=== PATIENT | male | born 1990 | race Hispanic/Latino ===

== ENCOUNTER 2021-04-08 22:44 | Emergency (ER) | payer OTHER, SELFPAY ==
--- NOTE | 2021-04-08 22:52 | DI.RAD.S_ITS ---
PROCEDURE: XR LUMBAR SPINE 2-3V INDICATIONS: fall TECHNIQUE: 3 views of the lumbar spine were acquired. COMPARISON: [facility], , SPINE LUMB 2 OR 3VW, 09/25/2014, 7:31. FINDINGS: Bones: 5 [id number] vertebrae are present. There is normal bony alignment. No vertebral body compression fractures. No suspicious bony lesions. Soft tissues: Overlying bowel gas pattern is normal. No suspicious soft tissue calcifications. IMPRESSION: No acute finding. Dictated by: Alvino Romero M.D. on 04/08/2021 at 23:07 Approved by: Alvino Romero M.D. on 04/08/2021 at 23:08
--- NOTE | 2021-04-08 22:52 | DI.RAD.S_ITS ---
PROCEDURE: XR HIP W PEL IF DONE RT 2V INDICATIONS: fall TECHNIQUE: 2 views of the hip were acquired. COMPARISON: None. FINDINGS: Bones: No fractures or dislocations. No suspicious bony lesions. The visualized pelvic ring appears intact. Soft tissues: No suspicious soft tissue calcifications or masses. IMPRESSION: No acute finding. Dictated by: Alvino Romero M.D. on 04/08/2021 at 23:09 Approved by: Alvino Romero M.D. on 04/08/2021 at 23:09
[2021-04-08 22:53] VITALS: BP 118/56; PULSE 78; RESP 16; O2SAT 100
--- NOTE | 2021-04-08 23:57 | ED_ITS ---
HPI - Back Pain/Injury General Chief Complaint: Back Pain/Injury Stated Complaint: HURT BACK Time Seen by Provider: 04/08/21 23:45 Source: patient History of Present Illness HPI Narrative: Patient here with girlfriend. Complains right lower back pain. Was at work. Was lifting heavy buckets of pain in slipped and fell onto his right buttock area. Pain radiates down his leg to the calf. No bowel or bladder incontinence. No saddle paresthesia. No prior history of back injury or pain. Is able stand ambulate but does have pain. Related Data Previous Rx's Medication Instructions Recorded baclofen 20 mg tablet 20 mg PO TID #20 tab 04/08/21 ibuprofen 600 mg tablet 600 mg PO Q6H PRN #24 tab 04/08/21 Allergies Allergy/AdvReac Type Severity Reaction Status Date / Time No Known Drug Allergies Allergy Verified 04/08/21 22:55 Review of Systems Review of Systems Narrative: GENERAL: Denies chills, fatigue, malaise, fever, sweats. HEENT: Denies sinus pain, ear pain, sore throat RESPIRATORY: Denies dyspnea, cough CARDIOVASCULAR: Denies chest pain, palpitations GASTROINTESTINAL: Denies nausea, vomiting, abdominal pain : Denies dysuria, frequency, hematuria MUSCULOSKELETAL: Positive for muscle or bony pain SKIN: Denies rash, skin lesions NEUROLOGIC: Denies weakness, positive numbness, no saddle paresthesia, no incontinence ROS Unobtainable: All systems reviewed & are unremarkable except as noted in HPI and below Exam Narrative Exam Narrative: GENERAL: in no distress, not toxic not dyspneic HEAD: Normocephalic. EYES: Pupils equal round No scleral icterus. ENT: Mucous membranes moist. NECK: Trachea midline. CARDIOVASCULAR: Regular rate and rhythm without murmurs RESPIRATORY: Clear to auscultation. Breath sounds equal bilaterally. No wheezes, rales, or rhonchi. GASTROINTESTINAL: Abdomen soft, non-tender EXTREMITIES: No gross deformities. Nontender hip. Able to flex and extend at the hip but does have pain in the lower back. BACK: No flank tenderness. Reproducible right supragluteal muscle tenderness no bruising skin is intact. No midline tenderness or step-off of the thoracic or lumbar spine. There is limited range of motion at the waist due to pain. There is pain with right straight leg raise at 30?. NEURO: AOx4. Able stand. Has antalgic gait due to right lower back pain. No foot drop. Strong bilateral patellar reflexes and ankle flexion extension. Denies any numbness to the feet. SKIN: Warm and dry PSYCH: Not anxious, is cooperative Initial Vital Signs Initial Vital Signs: Vital Signs Pulse Rate 78 04/08/21 22:53 Respiratory Rate 16 04/08/21 22:53 Blood Pressure 118/56 L 04/08/21 22:53 Pulse Oximetry 100 04/08/21 22:53 Course Course Course Narrative: No new issues during course of stay. Orders Ordered: ED Orders 04/08/21 22:52 XR hip w pel if done RT 2V Stat XR lumbar spine 2-3V Stat Discontinued Medications Hydrocodone Bitart/Acetaminophen (Hydrocodone/Acet 5/325 Tablet) 2 tab PO NOW ONE Stop: 04/08/21 23:57 Last Admin: 04/09/21 00:04 Dose: 2 tab Documented by: EDIS Ketorolac Tromethamine (Ketorolac 30 Mg/Ml Vial) 15 mg IM NOW ONE Stop: 04/08/21 23:57 Last Admin: 04/09/21 00:04 Dose: 15 mg Documented by: EDIS Ondansetron HCl (Ondansetron 4 Mg Odt) 4 mg SL NOW ONE Stop: 04/08/21 23:57 Last Admin: 04/09/21 00:04 Dose: 4 mg Documented by: EDIS Reevaluation(s) Reevaluation #1: Reviewed results of imaging with patient and girlfriend. At this time appropriate for outpatient MRI. No neuro deficits. Girlfriend is driving. Patient has not decided if he is going to complete L and I form. I did start procedure of completing the form. Time: 00:03 Vital Signs Vital signs: Vital Signs - 8 hr 04/08/21 22:53 04/09/21 00:26 Pulse Rate 78 70 Respiratory Rate 16 18 Blood Pressure 118/56 L Pulse Oximetry 100 100 MDM - Back Pain/Injury Imaging Data Extremity x-ray #1: Radiologist's Impression: [address] [address] XRay Report Signed Patient: Addison Hernandez MR#: [id number] : 1990 Acct:[id number] Age/Sex: 30 / M Date of Service: 04/08/21 Loc: ED Accession Number: [id number] ?? Procedure: XR lumbar spine 2-3V Ordering Provider: Jeremy Malloy MD PROCEDURE:? XR LUMBAR SPINE 2-3V ? INDICATIONS:? fall ? TECHNIQUE:? 3 views of the lumbar spine were acquired.? ? COMPARISON:? [facility], , SPINE LUMB 2 OR 3VW, 09/25/2014, 7:31. ? FINDINGS:? ? Bones:? 5 [id number] vertebrae are present.? There is normal bony align ment.? No vertebral body compression fractures.? No suspicious bony lesions.? ? Soft tissues:? Overlying bowel gas pattern is normal.? No suspicious soft tissue calcifications.? ? ? IMPRESSION:? No acute finding. ? ? Dictated by: Alvino Romero M.D. on 04/08/2021 at 23:07 ? ? Approved by: Alvino Romero M.D. on 04/08/2021 at 23:08 ? Extremity x-ray #2: Radiologist's Impression: [place] [address] XRay Report Signed Patient: Addison Hernandez MR#: [id number] : 1990 Acct:[id number] Age/Sex: 30 / M Date of Service: 04/08/21 Loc: ED Accession Number: [id number] ?? Procedure: XR hip w pel if done RT 2V Ordering Provider: Jeremy Malloy MD PROCEDURE:? XR HIP W PEL IF DONE RT 2V ? INDICATIONS:? fall ? TECHNIQUE:? 2 views of the hip were acquired.? ? COMPARISON:? None. ? FINDINGS:? ? Bones:? No fractures or dislocations.? No suspicious bony lesions.? The visualized pelvic ring appears intact.? ? Soft tissues:? No suspicious soft tissue calcifications or masses.? ? IMPRESSION:? No acute finding. ? ? Dictated by: Alvino Romero M.D. on 04/08/2021 at 23:09 ? ? Approved by: Alvino Romero M.D. on 04/08/2021 at 23:09 ? MDM Narrative Medical decision making narrative: Appropriate for discharge home. No neuro deficits. Imaging reassuring. As well as exam. Appropriate for outpatient MRI if not improving in a week. L and I form completed on my behalf however patient has not decided if he wants to submit. Referral for Orthopedics given. Return precautions reviewed with him and girlfriend. She is driving. Not toxic at discharge. Discharge Plan Departure Patient Disposition: Home Clinical Impression: Acute back pain with radiculopathy Activity Restrictions/Additional Instructions: No driving or operating machinery tonight. Inform your employer if you wish to complete L and I forms. Follow-up provider with orthopedics has been given to you. Call the office tomorrow for re-evaluation a week. May use cool or warm packs to the lower back as needed for pain and swelling 20 minutes at a time. Return if worse if any questions or concerns. Prescriptions: New ibuprofen 600 mg tablet 600 mg PO Q6H PRN (Reason: fever or pain) Qty: 24 0RF baclofen 20 mg tablet 20 mg PO TID Qty: 20 0RF Referrals: Juan Weems MD [Physician] - Stand Alone Forms: Work Release Note
[2021-04-09] MEDS: KETOROLAC 30 MG/ML VIAL 15 MG IM (00:04)
[2021-04-09] MEDS: ONDANSETRON 4 MG ODT SL (00:04)
[2021-04-09] MEDS: HYDROCODONE/ACET 5/325 TABLET 2 TAB PO (00:04)
[2021-04-09 00:26] VITALS: PULSE 70; RESP 18; O2SAT 100
== END 2021-04-09 00:26 | disposition home or self-care (01) ==
PROVIDERS: Emergency Provider Emergency Medicine
DX: M54.50 Low back pain, unspecified (principal); M54.16 Radiculopathy, lumbar region; W01.0XXA Fall on same level from slipping, tripping and stumbling without subsequent striking against object, initial encounter; Y99.0 Civilian activity done for income or pay
CPT/HCPCS: 72100; 73502; 96372; 99283; J1885